=== PATIENT | male | born 1975 | race Hispanic/Latino ===

== ENCOUNTER → 2016-08-01 | Outpatient (CLI) | payer OTHER ==
--- NOTE | 2016-08-01 09:22 | REP ---
MRI RIGHT SHOULDER WITHOUT CONTRAST: HISTORY: Right shoulder pain. No comparison radiographs. Technique: Axial, oblique coronal, and oblique sagittal imaging planes are utilized for T1 and T2-weighted scans obtained in the usual fashion with and without fat saturation. MRI findings: The right glenohumeral and acromioclavicular joints are normally aligned. There is osteoarthritic hypertrophy particularly along the superior margin of the AC joint. There is some inferolateral spurring of the acromion process. Cortical and medullary bone signal intensity are normal. There is a small subcortical cyst formed in the superolateral humeral head. There is a moderate sized subacromial subdeltoid bursal effusion. There is swelling and increased signal intensity diffusely in the distal supraspinatus tendon consistent with tendonitis tendinosis change. An partial thickness T2-weighted lesion is seen along the bursal surface of the tendon at approximately 12 o'clock on the humeral head. No full-thickness cuff lesion is appreciated. There is no evidence of cartilaginous labral tear. There is suggestion of some fraying posteriorly, however, at the labral cartilage on axial images. The infraspinatus, subscapularis, and biceps tendons appear intact. No juxtaarticular cyst or mass is seen. Impression: 1. AC joint osteoarthritis and acromion process spurring. 2. 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 3. Subacromial subdeltoid bursal effusion. 4. Partial thickness bursal surface supraspinatus cuff lesion at approximately 12 o'clock on the humeral head on oblique coronal images. Signed by Tao York MD 08/01/2016 10:31 A
== END ==
LOC: M RAD 07:48
PROVIDERS: ATTEND Chiropractor
DX: M25.411 Effusion, right shoulder (principal); M19.011 Primary osteoarthritis, right shoulder; M65.811 Other synovitis and tenosynovitis, right shoulder

== ENCOUNTER → 2017-02-14 | Outpatient (CLI) | payer OTHER | LOC: M RADPRO 06:46 | PROVIDERS: ATTEND Family Medicine | DX: M25.511 Pain in right shoulder (principal); Z53.9 Procedure and treatment not carried out, unspecified reason ==